=== PATIENT | female | born 1970 | race Caucasian/White ===

== ENCOUNTER 2020-04-25 11:50 | Emergency (ER) | payer BC, SELFPAY ==
--- NOTE | ~2020-04-25 | XR_ITS ---
EXAMINATION: XR chest 2V 04/25/2020 12:33 INDICATION: Nonproductive cough and wheezing PROCEDURE: 2 view chest COMPARISON: No prior studies for comparison. FINDINGS: The lungs are clear. The cardiomediastinal silhouette is within normal limits. There are no pleural effusions. There is no pneumothorax suspected. IMPRESSION: 1: NO ACUTE CARDIOPULMONARY DISEASE. Reviewed, dictated and finalized at location A.
[2020-04-25 12:05] VITALS: BP 143/80; PULSE 108; RESP 16; TEMP 36.9; O2SAT 98
--- NOTE | 2020-04-25 12:13 | ED.GENADULT ---
HPI - General Adult General Chief complaint: Upper Respiratory Infection Stated complaint: Coigh/Congestion Time Seen by Provider: 04/25/20 12:13 Source: patient and RN notes reviewed Mode of arrival: ambulatory Limitations: no limitations History of Present Illness HPI narrative: 49-year-old female presents with complains of dry cough, wheezing, and intermittent shortness of breath for the past 4 months. Albuterol inhaler, Tesslon pearles, Prednisone (last used on ), Doxycycline (last used on 04/16/20) with some relief. Intermittent dry cough. Rhinorrhea and nasal congestion. Denies sore throat. No high fevers, drooling, neck or throat swelling. No chest pain. Harjinder denies exacerbation factors. She does vapes, says it is non-nicotine based. Denies nausea, vomiting, and abdominal pain. Tolerating liquids well. LMP, 5 year post menopausal. The patient reports she have not been diagnosed with COVID-19. The patient reports she is not waiting for the results of a COVID-19 lab test. Tested NEGATIVE 2 times, last 3 weeks ago. The patient reports she do not have fever, chills, weakness, or fatigue. The patient reports she do not have a new or worsening cough or shortness of breath. Denies chest pain. The patient reports she do not have any loss of taste or diarrhea. Denies recent traveling. Denies concerns for COVID-19 or exposures been home with limited outdoor exposure except for essential household needs, work, and return home. At this time, patient is not suspected of having COVID-19. Some parts of this dictation were generated by voice recognition software and may contain typographical and/or grammatical inaccuracies. Related Data Home Medications Medication Instructions Recorded Confirmed cetirizine [Zyrtec] 10 mg PO DAILY 04/25/20 04/25/20 fluticasone propionate [Flonase 1 spray INTRANASAL DAILY 04/25/20 04/25/20 Allergy Relief] Allergies Allergy/AdvReac Type Severity Reaction Status Date / Time codeine Allergy Unknown Verified 12/09/17 13:18 Penicillins Allergy Unknown Verified 05/09/10 13:23 Review of Systems Review of Systems: Narrative: CONSTITUTIONAL: Denies fever, chills, sweats. EYES: Denies visual changes, redness, discharge. ENT: Complains of rhinorrhea, congestion. Denies sore throat, otalgia. CARDIOVASCULAR: Denies chest pain, palpitations, edema. RESPIRATORY: Complains of dyspnea, wheezing, intermittent dry cough. GASTROINTESTINAL: Denies abdominal pain, nausea, vomiting, diarrhea. GENITOURINARY: Denies dysuria, hematuria, abnormal discharge. SKIN: Denies rash or itching. MUSCULOSKELETAL: Denies acute back pain, joint pain, or myalgia. NEUROLOGIC: Denies numbness or focal weakness. PSYCHIATRIC: Denies anxiety or depression. 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
[2020-04-25] MEDS: IPRATROPIUM BR 0.02% INH SOLN 0.5 MG/2.5 ML VIAL INHALATION (12:41)
[2020-04-25] MEDS: ALBUTEROL SULFATE NEB 2.5 MG/3 ML INH INHALATION (12:41)
[2020-04-25 12:44] VITALS: PULSE 105; RESP 18; O2SAT 98
[2020-04-25 13:10] VITALS: PULSE 98; RESP 17; O2SAT 95
== END 2020-04-25 13:14 | disposition home or self-care (01) ==
PROVIDERS: Emergency Provider Nurse Practitioner Family
DX: B34.9 Viral infection, unspecified (principal); R06.2 Wheezing; Z20.828 Contact with and (suspected) exposure to other viral communicable diseases; F17.200 Nicotine dependence, unspecified, uncomplicated; K21.9 Gastro-esophageal reflux disease without esophagitis; I34.1 Nonrheumatic mitral (valve) prolapse
CPT/HCPCS: 71046; 94640; 96372; 99213; G0463; J1100

== ENCOUNTER 2020-05-15 11:32 | Emergency (ER) | payer BC, SELFPAY ==
--- NOTE | 2020-05-15 11:36 | ED.SOB ---
HPI - SOB/Dyspnea General Chief Complaint: Upper Respiratory Infection Stated Complaint: SOB Time Seen by Provider: 05/15/20 11:47 Source: patient and RN notes reviewed Mode of arrival: ambulatory Limitations: no limitations History of Present Illness HPI Narrative: 49-year-old female presents with concern for wheezing, shortness of breath. Reports since December of this year she has had intermittent bouts of wheezing, shortness of breath. She has not been previously diagnosed with asthma or any other reactive airway disease. Denies smoking cigarettes, reports vaping. Reports for the last several days she has been wheezing, worse in the morning, shortness of breath. Reports at home she takes Flonase and Zyrtec for allergies. Reports she refilled an inhaler that she got from a telemedicine doctor 4 days ago, and has used it every 2-3 hours and it is almost gone. She denies fever, malaise, chills, sweats. Denies sore throat. Reports rhinorrhea. MD elicited complaint: shortness of breath Related Data Allergies Allergy/AdvReac Type Severity Reaction Status Date / Time codeine Allergy Unknown Hallucinati Verified 05/15/20 11:50 ng Penicillins Allergy Unknown Hives Verified 05/15/20 11:50 Review of Systems Review of Systems: Narrative: CONSTITUTIONAL: Denies malaise, chills, sweats, or fever. EYES: Denies visual changes, redness, or discharge. ENT: Reports rhinorrhea. Denies congestion, sinus pain, otalgia and sore throat. CARDIOVASCULAR: Denies chest pain, palpitations, or edema. RESPIRATORY: Reports cough, wheezing, dyspnea. GASTROINTESTINAL: Denies abdominal pain, nausea, vomiting, diarrhea SKIN: Denies rash or itching. MUSCULOSKELETAL: Denies myalgia. NEUROLOGIC: Denies headache. 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 There is no relevant family history pertinent to the presenting complaint Exam Narrative: Exam Narrative: GENERAL: Well-appearing, well-nourished, and in no acute distress. HEAD: Normocephalic EYES: PERRLA, conjunctivae clear ENT: Nares clear, turbinates erythematous, clear discharge. Mucous membranes moist. TM pearly jeong with dull light reflex bilaterally; no tragal tenderness. Oropharynx not erythematous without lesions. Tonsils not enlarged and without exudate, no drooling, no hoarseness, no trismus, uvula midline. NECK: Supple. No lymphadenopathy CHEST: Inspiratory and expiratory wheeze throughout, breath sounds equal. No rhonchi, rales, or stridor. No respiratory distress, speaks in full sentences. HEART: Regular rate and rhythm. No murmur heard. SKIN: Warm, dry, no rash. NEURO: Alert and oriented x3. PSYCH: Normal mood and affect Course Course Emergency Course: Patient is aware of diagnosis, understands and agrees to treatment plan. Anticipatory guidance given. Patient agrees to follow
[2020-05-15 11:43] VITALS: BP 146/116; PULSE 101; RESP 16; TEMP 36.9; O2SAT 95
[2020-05-15] MEDS: methylPREDNISolone SOD SUCC 125 MG VIAL IM (12:05)
[2020-05-15] MEDS: ALBUTEROL SULFATE NEB 2.5 MG/3 ML INH INHALATION (12:07)
[2020-05-15] MEDS: IPRATROPIUM BR 0.02% INH SOLN 0.5 MG/2.5 ML VIAL INHALATION (12:07)
[2020-05-15 12:31] VITALS: PULSE 97; O2SAT 99
== END 2020-05-15 12:35 | disposition home or self-care (01) ==
PROVIDERS: Emergency Provider Nurse Practitioner
DX: R06.2 Wheezing (principal); K21.9 Gastro-esophageal reflux disease without esophagitis; I34.1 Nonrheumatic mitral (valve) prolapse; F17.200 Nicotine dependence, unspecified, uncomplicated
CPT/HCPCS: 94640; 96372; 99213; G0463; J2930

== ENCOUNTER 2020-11-28 14:43 | Outpatient (CLI) | payer BC, SELFPAY ==
--- NOTE | ~2020-11-28 | CT_ITS ---
EXAMINATION: CT sinus wo con DATE: 11/28/2020 15:02 INDICATION: Sinusitis TECHNIQUE: Computed tomography (CT) of the chest was performed without intravenous contrast. The dose -length product was 282.66 mGy-cm. Automated exposure control and iterative reconstruction technique were employed. COMPARISON: None FINDINGS: There is a small mucous retention cyst left maxillary sinus. No significant mucosal thicken ing. No air-fluid levels. Ostiomeatal units are patent. Rightward nasal septal deviation. Mastoids ar e pneumatized. IMPRESSION: 1. No significant sinus disease. Reviewed, dictated and finalized at location B.
== END 2020-11-28 14:44 ==
PROVIDERS: Visit Provider Allergy & Immunology
DX: J32.9 Chronic sinusitis, unspecified (principal)
CPT/HCPCS: 70486